=== PATIENT | female | born 1980 | race African-American/Black ===

== ENCOUNTER 2016-09-01 17:08 | Emergency (ER) | payer MEDICAID, OTHER ==
[~2016-09-01] VITALS: Ht 165.1 cm; Wt 70.0 kg
[~2016-09-01 17:08] MED LIST: MACR100C PO
[2016-09-01 17:10] VITALS: BP 112/62; PULSE 76; RESP 16; TEMP 98.1; O2SAT 100
--- NOTE | 2016-09-01 17:27 | PD ---
HPI Chief Complaint: Related Problem Time Seen by Provider: 17:22 Travel History International Travel<30 days: No Contact w/Intl Traveler<30days: No Traveled to known affect area: No History of Present Illness HPI 35-year-old female , LMP in June 2016, here for evaluation of lower abdominal cramping. Cramping has been going on for last 2 weeks, has been intermittent, mainly in the left lower abdomen, worse at night, no modifying factors. She denies vaginal bleeding or discharge. No history of abdominal surgeries. No fevers or chills. No urinary symptoms. PFSH Past Medical History Medical History: Denies Significant Hx Diminished Hearing: No ?: LMP: 06/2016 : 4 Para: 2 Social History Alcohol Use: No Tobacco Use: No Substance Use: No Allergies-Medications (Allergen,Severity, Reaction): Coded Allergies: No Known Allergies (Verified , 09/01/16) Reported Meds & Prescriptions Reported Meds & Active Scripts Active Review of Systems Except as stated in HPI: all other systems reviewed are Neg Physical Exam Narrative GENERAL: Well-developed, well-nourished, comfortable, no acute distress. SKIN: Warm and dry. HEAD: Atraumatic. Normocephalic. EYES: Pupils equal and round. No scleral icterus. No injection or drainage. ENT: Mucous membranes pink and moist. CARDIOVASCULAR: Regular rate and rhythm. No murmur appreciated. RESPIRATORY: No accessory muscle use. Clear to auscultation. Breath sounds equal bilaterally. GASTROINTESTINAL: Abdomen soft, non-tender, nondistended. MUSCULOSKELETAL: No obvious deformities. No clubbing. No cyanosis. No edema. NEUROLOGICAL: Awake and alert. No obvious cranial nerve deficits. Motor grossly within normal limits. Normal speech. PSYCHIATRIC: Appropriate mood and affect; insight and judgment normal. Data Data Last Documented VS Vital Signs Date Time Temp Pulse Resp B/P Pulse Ox O2 Delivery O2 Flow Rate FiO2 09/01/16 18:10 72 18 104/73 99 Room Air 09/01/16 17:10 98.1 Orders Beta Hcg (Quant/Titer) (09/01/16 17:25) Complete Blood Count With Diff (09/01/16 17:25) Comprehensive Metabolic Panel (09/01/16 17:25) Us Pelvis (Ques Preg/Ectopic) (09/01/16 ) Urinalysis - C+S If Indicated (09/01/16 17:25) Ed Urine Pregnancytest Poc (09/01/16 17:25) Labs Laboratory Tests Test 09/01/16 09/01/16 17:30 17:35 Urine Color YELLOW Urine Turbidity HAZY Urine pH 6.0 Urine Specific Garner 1.023 Urine Protein NEG mg/dL Urine Glucose (UA) NEG mg/dL Urine Ketones NEG mg/dL Urine Occult Blood NEG Urine Nitrite NEG Urine Bilirubin NEG Urine Urobilinogen LESS THAN 2.0 MG/DL Urine Leukocyte Esterase MOD Urine RBC 1 /hpf Urine WBC 4 /hpf Urine Squamous Epithelial 9 /hpf Cells Urine Mucus FEW /lpf Microscopic Urinalysis Comment CULT NOT INDICATED White Blood Count 6.6 TH/MM3 Red Blood Count 3.78 MIL/MM3 Hemoglobin 12.2 GM/DL Hematocrit 35.2 % Mean Corpuscular Volume 93.1 FL Mean Corpuscular Hemoglobin 32.3 PG Mean Corpuscular Hemoglobin 34.7 % Concent Red Cell Distribution Width 13.2 % Platelet Count 197 TH/MM3 Mean Platelet Volume 8.2 FL Neutrophils (%) (Auto) 56.2 % Lymphocytes (%) (Auto) 32.4 % Monocytes (%) (Auto) 8.5 % Eosinophils (%) (Auto) 1.6 % Basophils (%) (Auto) 1.3 % Neutrophils # (Auto) 3.7 TH/MM3 Lymphocytes # (Auto) 2.1 TH/MM3 Monocytes # (Auto) 0.6 TH/MM3 Eosinophils # (Auto) 0.1 TH/MM3 Basophils # (Auto) 0.1 TH/MM3 CBC Comment DIFF FINAL Differential Comment Sodium Level 137 MEQ/L Potassium Level 3.6 MEQ/L Chloride Level 103 MEQ/L Carbon Dioxide Level 25.9 MEQ/L Anion Gap 8 MEQ/L Blood Urea Nitrogen 11 MG/DL Creatinine 0.75 MG/DL Estimat Glomerular Filtration 106 ML/MIN Rate Random Glucose 89 MG/DL Calcium Level 8.6 MG/DL Total Bilirubin 0.1 MG/DL Aspartate Amino Transf 11 U/L (AST/SGOT) Alanine Aminotransferase 14 U/L (ALT/SGPT) Alkaline Phosphatase 66 U/L Total Protein 7.0 GM/DL Albumin 3.3 GM/DL Human Chorionic Gonadotropin, 170324 MIU/ML Quant MDM Medical Decision Making Medical Screen Exam Complete: Yes Emergency Medical Condition: Yes Medical Record Reviewed: Yes Differential Diagnosis Ectopic , , UTI, cystitis, ovarian cyst, ovarian torsion less likely Narrative Course Chart review shows that the patient's blood type is O+. Vital signs show heart rate 76, blood pressure 112/62, pulse ox 100% on room air , oral temp of 98.1F. CBC is unremarkable. CMP is unremarkable. Beta hCG is 160,000. UA is not suggestive of UTI. Pelvic ultrasound: CONCLUSION: Within normal limits. Single, viable intrauterine at about 8 weeks 3 days gestational age without evidence of an acute complication. Patient was made aware of all findings. She is resting comfortably. Her abdominal exam is benign. She is stable for discharge home with outpatient follow-up with an [employer] doctor this week. She was informed on when to return to the emergency department. She verbalizes understanding and agreement with plan. Diagnosis Primary Impression: Qualified Code: Z3A.08 - 8 weeks gestation of Referrals: [facility] 3 days Additional Instructions: Follow-up with an [employer] doctor this week. Return to the emergency department for worsening symptoms or any other concerns. Disposition: 01 DISCHARGE HOME Condition: Stable Tyrone Butler MD Sep 01, 2016 17:27
[2016-09-01 17:49] LABS: AUTOMATED NEUTROPHIL # 3.7 TH/MM3 (1.8-7.7); BASOPHIL # 0.1 TH/MM3 (0-0.2); BASOPHIL % 1.3 % (0.0-2.0); EOSINOPHIL # 0.1 TH/MM3 (0-0.4); EOSINOPHIL % 1.6 % (0.0-4.0); HEMATOCRIT 35.2 % (35.0-46.0); HEMO FLAGS DIFF FINAL; LYMPH % 32.4 % (9.0-44.0); LYMPHOCYTE # 2.1 TH/MM3 (1.0-4.8); MEAN CELL VOLUME 93.1 FL (80.0-100.0); MEAN CORPUSCULAR HEMOGLOBIN 32.3 PG (27.0-34.0); MEAN CORPUSCULAR HGB CONC 34.7 % (32.0-36.0); MONO % 8.5 % (0.0-8.0); NEUT % 56.2 % (16.0-70.0); PLATELET COUNT 197 TH/MM3 (150-450); RED BLOOD COUNT 3.78 MIL/MM3 (4.00-5.30); RED CELL DISTRIBUTION WIDTH 13.2 % (11.6-17.2); WHITE BLOOD COUNT 6.6 TH/MM3 (4.0-11.0)
[2016-09-01 17:52] LABS: BLOOD, URINE NEG (NEG); COMMENT (UR) CULT NOT INDICATED; CULTURE IF INDICATED CULT NOT INDICATED; GLUCOSE,URINE NEG (NEG); KETONE, URINE NEG (NEG); MUCUS URINE FEW /lpf (OCC); NITRITE,URINE NEG (NEG); SQUAMOUS EPITHELIAL CELL URINE 9 /hpf (0-5); URINE COLOR YELLOW (YELLW/STRAW)
[2016-09-01 18:10] VITALS: BP 104/73; PULSE 72; RESP 18; O2SAT 99
[2016-09-01 18:10] LABS: ANION GAP 8 MEQ/L (5-15); AST (GOT) 11 U/L (15-37); BICARBONATE 25.9 MEQ/L (21.0-32.0); BLOOD UREA NITROGEN 11 MG/DL (7-18); CHLORIDE 103 MEQ/L (98-107); GLOMERULAR FILTRATION RATE 106 ML/MIN (>89); POTASSIUM 3.6 MEQ/L (3.5-5.1); SODIUM (NA) 137 MEQ/L (136-145)
[2016-09-01 18:29] LABS: ALKALINE PHOSPHATASE 66 U/L (45-117); ALT (GPT) 14 U/L (10-53); BETA HCG QUANT 160653 MIU/ML (0-5); TOTAL BILIRUBIN ADULT 0.1 MG/DL (0.2-1.0)
--- NOTE | 2016-09-01 18:40 | RADRPT ---
EXAM DATE/TIME: 09/01/2016 17:42 [facility] COMPARISON: US PELVIS (QUEST PREG/ECTOPIC) W/TRANSVAG, January 08, 2016, 16:50. INDICATIONS : Pelvis pain. LAB(S): Beta-hC MEDICAL HISTORY : . SURGICAL HISTORY : None. ENCOUNTER: Subsequent ACUITY: 1 day PAIN SCORE: 8/10 LOCATION: Bilateral pelvis MEASUREMENTS: UTERUS: 11.2 x 8.2 x 7.8 cm ENDOMETRIAL STRIPE: >20 mm RIGHT OVARY: 3.3 x 1.9 x 3.7 cm LEFT OVARY: 3.8 x 2.3 x 3.3 cm FINDINGS: UTERUS: Gestational sac, yolk sac and pole seen within the uterine cavity. Okarche rump length is approxi mately 1.93 cm corresponding to a gestational age of 8 weeks 3 days. heart tones are demonstrat ed, approximately 170 beats per minute at the time of imaging. RIGHT OVARY: Ovary contains no mass or significant cystic lesion. LEFT OVARY: Ovary contains no mass or significant cystic lesion. MISCELLANEOUS: No free fluid. CONCLUSION: Within normal limits. Single, viable intrauterine at about 8 weeks 3 days gestational age w ithout evidence of an acute complication. Leonardo Mcgee MD on September 01, 2016 at 18:37 Board Certified Radiologist. This report was verified electronically.
== END 2016-09-01 19:59 | disposition home or self-care (01) ==
LOC: NEPA 17:08
DX: O09.521 Supervision of elderly multigravida, first trimester (principal); R10.30 Lower abdominal pain, unspecified; Z3A.08 8 weeks gestation of pregnancy
CPT/HCPCS: 76700; 80053; 81001; 84702; 84703; 85025